=== PATIENT | female | born 1955 | race Caucasian/White ===

== ENCOUNTER 2020-01-15 17:47 | Emergency (ER) | payer BC, OTHER ==
[~2020-01-15] VITALS: Ht 152.4 cm; Wt 63.5 kg
[~2020-01-15 17:47] MED LIST: FLOMAX0.4 MG PO
[2020-01-15] MEDS ORDERED: ZOFRAN4 MG SL (18:04)
[2020-01-15] MEDS ORDERED: ACETAMINOPHEN500 MG PO (18:04)
--- NOTE | 2020-01-15 18:04 | Emergency Department Note ---
History of Present Illnes History of Present Illness Chief Complaint: Head/Face Trauma History of Present Illness This is a 64 year old female c/o head pain after a fall. she ac cidentally fell, landed backward and hurt the back of her head, bleeding no bruise, just feels "fumy" nauseated. . Arrival Mode: [employer] Director Required: No Onset (how long ago): hour(s) Radiation: Reports non-radiation Severity: moderate Onset quality: sudden Duration (how long): hour(s) Progression: unchanged Chronicity: new Relieving factors: none Exacerbating factors: none Treatments prior to arrival: none Past Medical/Family History Physician Review I have reviewed the patient's past medical and family history. Any updates have been documented here. Past Medical History Recent Fever: No Clinical Suspicion of Infectio: No New/Unexplained Change in Ment: No Past Medical History: Hypertension, Anxiety Past Surgical History: Hernia Repair Other Surgery: arm Social History Smoking Cessation: Never Smoker Counseling Performed: No Alcohol Use: Occasional Any Illegal Drug Use: No Physically hurt or threatened: No Other Last Tetanus: unknown Any Pre-Existing Lines (PICC,: No Review of Systems Review of Systems Constitutional: Reports no symptoms EENTM: Reports no symptoms Cardiovascular: Reports no symptoms Respiratory: Reports no symptoms Gastrointestinal: Reports no symptoms Genitourinary: Reports no symptoms Musculoskeletal: Reports no symptoms Integumentary: Reports no symptoms Neurological: Reports as per HPI Psychological: Reports no symptoms Endocrine: Reports no symptoms Hematological/Lymphatic: Reports no symptoms Physical Exam Related Data Allergies: Coded Allergies: codeine (Verified Allergy, Mild, 06/04/10) Uncoded Allergies: TRIPLE SEC (Allergy, Mild, 06/04/10) Vital signs reviewed: Yes Physical Exam CONSTITUTIONAL Constitutional: Present well-developed, Present well-nourished HENT HENT: Present normocephalic, Present atraumatic, Present oropharynx clear/moist, Present nose normal HENT L/R: Present left ext ear normal, Present right ext ear normal EYES Eyes: Reports PERRL, Reports conjunctivae normal NECK Neck: Present ROM normal PULMONARY Pulmonary: Present effort normal, Present breath sounds normal CARDIOVASCULAR Cardiovascular: Present regular rhythm, Present heart sounds normal, Present capillary refill normal, Present normal rate GASTROINTESTINAL Abdominal: Present soft, Present nontender, Present bowel sounds normal GENITOURINARY Genitourinary: Present exam deferred SKIN Skin: Present warm, Present dry MUSCULOSKELETAL Musculoskeletal: Present ROM normal NEUROLOGICAL Neurological: Present alert, Present oriented x 3, Present no gross motor or sensory deficits PSYCHOLOGICAL Psychological: Present mood/affect normal, Present judgement normal Results Imaging Imaging results reviewed: Yes Imaging Comments no acute Assessment & Plan Medical Decision Making MDM contusion, concussion Assessment & Plan Final Impression: (1) Acute pain due to trauma (2) Concussion Depart Disposition: HOME, SELF-half-way Meds Active Scripts Acetaminophen (ACETAMINOPHEN) 500 Mg Tablet, 1 TAB PO Q6H for pain or fever, #60 THERAPEUTICALLY SUBSTITUTED WITH ACETAMINOPHEN 325MG Prov:JIE GILES MD 01/15/20 Ondansetron Hcl* (ZOFRAN*) 4 Mg Tablet, 4 MG SL Q6H PRN for NAUSEA, #14 MG 0 Refills Prov:JIE GILES MD 01/15/20 Reported Medications Tamsulosin Hcl* (FLOMAX*) 0.4 Mg Cap, 0.4 MG PO DAILY, #30 CAP 07/28/15 Physician Attestation Provider Attestation stable, walking, AAOX4, taking PO well, can be d/lisa safely JIE GILES MD Jan 15, 2020 18:04
--- NOTE | 2020-01-15 18:27 | Diagnostic Imaging Report ---
Exam: Head CT without contrast History: Trauma, fall Comparison studies: None Technique: Axial images were obtained from the skull base to the vertex. Coronal and sagittal images reconstructed from the axial data. Dose modulation, iterative reconstruction, and/or weight based adjustment of the mA/kV was utilized to reduce the radiation dose to as low as reasonably achievable. Radiation dose: Total DLP: 1090.28 mGy*cm. Estimated effective dose: DLP x 0.015 Intravenous contrast: None Findings: Scalp: No abnormalities. Bones: No fractures, blastic or lytic lesions. Brain sulci: Mildly prominent. Ventricles: Mild compensatory dilatation. No hydrocephalus. Extra-axial spaces: No masses, no fluid collection. Parenchyma: No abnormal densities. No masses, hemorrhage, acute or chronic vascular insults. Sellar/suprasellar region: No abnormalities. Craniocervical junction: Patent foramen magnum. No Chiari one malformation. 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 Possible chronic deformity also present in the posterior C1 arch which is otherwise incompletely imaged. Underpneumatized and sclerotic left mastoid, possibly sequela of chronic inflammation. IMPRESSION: 1. No acute abnormalities. 2. Mild generalized parenchymal volume loss. Signed by: Dr. Dany Mayo M.D. on 01/15/2020 6:23 PM
--- OUTSIDE RECORDS SUMMARY | 2020-01-15 18:29 | XMS REPORT | Continuity of Care Document ---
Author Author [facility] t Organization [facility] Address [facility] [place] [address] [place] [id number] Phone Unavailable Care Team Providers Care Shield Cleaner Name Role Phone King GILES Attphys Unavailable Problems This patient has no known problems. Allergies, Adverse Reactions, Alerts This patient has no known allergies or adverse reactions. Medications This patient has no known medications. Procedures This patient has no known procedures. Results Test Description Test Time Test Comments Results Result Comments Source CT BRAIN WO-HOPD 2020-01-15 18:18:00 [place] [address] Patient Name: NOELLE VEE MR #: [id number] : 1955 Age/Sex: 64/F Req #: [id number] Adm Physician: Ordered by: JIE GILES MD Report #: [id number] Location: [facility] Room/Bed: Procedure: [id number] HOPD/CT BRAIN WO-HOPD Exam Date: 01/15/20 Exam Time: 1813 REPORT STATUS: Signed Exam: Head CT without contrast History: Trauma, fall Comparison studies: None Technique: Axial images were obtained from the skull base to the vertex. Coronal and sagittal images reconstructed from the axial data. Dose modulation, iterative reconstruction, and/or weight based adjustment of the mA/kV was utilized to reduce the radiation dose to as low as reasonably achievable. Radiation dose: Total DLP: 1090.28 mGy*cm. Estimated effective dose: DLP x 0.015 Intravenous contrast: None Findings: Scalp: No abnormalities. Bones: No fractures, blastic or lytic lesions. Brain sulci: Mildly prominent. Ventricles: Mild compensatory dilatation. No hydrocephalus. Extra-axial spaces: No masses, no fluid collection. Parenchyma: No abnormal densities. No masses, hemorrhage, acute or chronic vascular insults. S ellar/suprasellar region: No abnormalities. Craniocervical junction: Patent foramen magnum. No Chiari one malformation. 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 Possible chronic deformity also present in the posterior C1 arch which is otherwise incompletely imaged. Underpneumatized and sclerotic left mastoid, possibly sequela of chronic inflammation. IMPRESSION: 1. No acute abnormalities. 2. Mild generalized parenchymal volume loss. Signed by: Dr. Jennifer Mayo M.D. on 01/15/2020 6:23 PM Dictated By: JENNIFER MAYO MD 22 Transcribed By: SANIA on 01/15/201822 COPY TO: JIE GILES MD
== END 2020-01-15 18:39 | disposition home or self-care (01) ==
LOC: FSED 18:27
DX: S06.0X0A Concussion without loss of consciousness, initial encounter (principal); W01.198A Fall on same level from slipping, tripping and stumbling with subsequent striking against other object, initial encounter; I10 Essential (primary) hypertension; F41.9 Anxiety disorder, unspecified
CPT/HCPCS: 70450; 99283